=== PATIENT | female | born 1995 | race Caucasian/White ===

== ENCOUNTER 2019-02-22 14:35 | Emergency (ER) | payer OTHER ==
[~2019-02-22] VITALS: Ht 157.5 cm; Wt 72.6 kg
[~2019-02-22 14:35] MED LIST: ZOLOFT50 MG PO
[2019-02-22] MEDS ORDERED: XANAX 0.5 MG0.5 MG PO (14:50)
[2019-02-22 15:38] LABS: ABSOLUTE EOSINOPHILS 0.1 thou/uL (0.0-0.7); ABSOLUTE LYMPHOCYTES 2.7 thou/uL (0.8-5.3); ABSOLUTE MONOCYTES 0.4 thou/uL (0.0-1.2); ABSOLUTE NEUTROPHILS 3.2 thou/uL (1.6-8.1); BASOPHILS 0.5 %; EOSINOPHILS 1.3 %; HEMATOCRIT 36.8 % (37.0-47.0); HEMOGLOBIN 12.7 gm/dL (12.0-15.0); LYMPHOCYTES 41.9 %; MCH 30.6 pg (26.0-34.0); MCHC 34.6 g/dL (28.0-37.0); MCV 88.5 fL (80.0-100.0); MONOCYTES 6.3 %; MPV 7.3 fl. (7.2-11.1); NUCLEATED RBCS 0 /100WBC; PLATELET COUNT* 318 thou/uL (150-400); RBC 4.16 mil/uL (4.20-5.00); RDW-CV 12.7 % (10.5-14.5); WBC 6.4 thou/uL (4.0-11.0)
[2019-02-22 15:47] LABS: CALCIUM 8.8 mg/dL (8.5-10.1); CREATININE 0.8 mg/dL (0.6-1.3); POTASSIUM 3.5 mmol/L (3.5-5.1)
[2019-02-22 15:52] LABS: ALBUMIN 3.6 g/dL (3.4-5.0); TOTAL BILIRUBIN 0.2 mg/dL (<0.1-1.0); TOTAL PROTEIN 6.6 g/dL (6.4-8.2)
[2019-02-22 15:56] LABS: URINE BILIRUBIN NEGATIVE (Negative); URINE BLOOD NEGATIVE (Negative); URINE CLARITY CLEAR; URINE COLOR YELLOW; URINE GLUCOSE-RANDOM NEGATIVE (Negative); URINE KETONES NEGATIVE (Negative); URINE LEUKOCYTES-REFLEX TRACE (Negative); URINE NITRITE-REFLEX NEGATIVE (Negative); URINE PROTEIN NEGATIVE (Negative); URINE SPECIFIC GRAVITY 1.015 (1.005-1.030); URINE UROBILINOGEN 0.2 E.U./dl (0.2-1.0)
[2019-02-22] MEDS ORDERED: DOXYCYCLINE 10100 MG PO (16:02)
[2019-02-22 16:12] LABS: MUCUS 0-3 Light strn/LPF (None Seen); SQUAMOUS >10 Many /LPF (0-3)
[2019-02-22 16:13] LABS: BACTERIA-REFLEX >30 Many /HPF (None Seen); CASTS None Seen /LPF (None Seen); CRYSTALS None Seen /LPF (None Seen); URINE RBC 0-2 Rare /HPF (0-2); URINE WBC-REFLEX 0-5 Rare /HPF (0-5)
[2019-02-22 16:17] VITALS: BP 125/87
== END 2019-02-22 16:19 | disposition home or self-care (01) ==
LOC: M.ERS 14:35
PROVIDERS: Physician Assistant
DX: N39.0 Urinary tract infection, site not specified (principal); N72 Inflammatory disease of cervix uteri

== ENCOUNTER 2019-03-28 09:10 | Emergency (ER) | payer OTHER ==
[~2019-03-28] VITALS: Ht 157.5 cm; Wt 72.6 kg
[~2019-03-28 09:10] MED LIST changes: +DOXYCYCLINE 10100 MG PO; +XANAX 0.5 MG0.5 MG PO
[2019-03-28 09:49] LABS: URINE BILIRUBIN NEGATIVE (Negative); URINE BLOOD NEGATIVE (Negative); URINE CLARITY CLEAR; URINE COLOR YELLOW; URINE GLUCOSE-RANDOM NEGATIVE (Negative); URINE KETONES NEGATIVE (Negative); URINE LEUKOCYTES-REFLEX 1+ (Negative); URINE NITRITE-REFLEX NEGATIVE (Negative); URINE PROTEIN TRACE (Negative); URINE UROBILINOGEN 0.2 E.U./dl (0.2-1.0)
[2019-03-28 10:02] LABS: SQUAMOUS >10 Many /LPF (0-3)
[2019-03-28 10:03] LABS: CASTS None Seen /LPF (None Seen); CRYSTALS None Seen /LPF (None Seen); MUCUS >6 Heavy strn/LPF (None Seen); URINE RBC None Seen /HPF (0-2); URINE WBC-REFLEX 0-5 Rare /HPF (0-5)
[2019-03-28 10:50] LABS: INFLUENZA A ANTIGEN Negative (Negative); INFLUENZA B ANTIGEN Negative (Negative)
[2019-03-28] MEDS ORDERED: TRAMADOL 50 MG50 MG PO (11:23)
[2019-03-28] MEDS ORDERED: BACTRIM DS TAB1 EACH PO (11:23)
[2019-03-28 11:40] VITALS: BP 97/56
== END 2019-03-28 11:41 | disposition home or self-care (01) ==
LOC: M.ERS 09:10
PROVIDERS: Emergency Medicine
DX: N39.0 Urinary tract infection, site not specified (principal); F17.210 Nicotine dependence, cigarettes, uncomplicated

== ENCOUNTER 2019-11-12 21:58 | Emergency (ER) | payer OTHER ==
[~2019-11-12] VITALS: Ht 157.5 cm; Wt 59.0 kg
[~2019-11-12 21:58] MED LIST changes: +BACTRIM DS TAB1 EACH PO; +TRAMADOL 50 MG50 MG PO
[2019-11-12 22:29] LABS: URINE CLARITY CLEAR; URINE COLOR ORANGE
[2019-11-12 22:35] LABS: URINE GLUCOSE-RANDOM ND (Negative); URINE KETONES ND (Negative); URINE PROTEIN ND (Negative); URINE REDUCING SUBSTANCE NEGATIVE (Negative); URINE SPECIFIC GRAVITY 1.015 (1.005-1.030)
[2019-11-12 22:36] LABS: ACETEST (KETONE CONFIRMATORY) Negative (Negative); ICTOTEST (BILI CONFIRMATORY) Negative (Negative); URINE BILIRUBIN ND (Negative); URINE BLOOD ND (Negative); URINE LEUKOCYTES-REFLEX ND (Negative); URINE NITRITE-REFLEX ND (Negative); URINE UROBILINOGEN ND E.U./dl (0.2-1.0)
[2019-11-12 22:50] LABS: AMORPHOUS URATES Many /LPF (None Seen); BACTERIA-REFLEX >30 Many /HPF (None Seen); CASTS None Seen /LPF (None Seen); MUCUS 4-6 Moderate strn/LPF (None Seen); SQUAMOUS 4-10 Moderate /LPF (0-3); URINE RBC 3-10 Few /HPF (0-2); URINE WBC-REFLEX 6-15 Few /HPF (0-5)
[2019-11-12] MEDS ORDERED: BACTRIM DS TAB1 EACH PO (23:11)
[2019-11-12] MEDS ORDERED: ZOFRAN4 MG PO (23:11)
[2019-11-12 23:19] VITALS: BP 118/54
== END 2019-11-12 23:20 | disposition home or self-care (01) ==
LOC: M.ERS 21:58
PROVIDERS: Emergency Medicine
DX: N39.0 Urinary tract infection, site not specified (principal); F17.210 Nicotine dependence, cigarettes, uncomplicated; F32.9 Major depressive disorder, single episode, unspecified; Z79.899 Other long term (current) drug therapy

== ENCOUNTER 2020-04-08 18:13 | Emergency (ER) | payer OTHER ==
[~2020-04-08] VITALS: Ht 157.5 cm; Wt 54.4 kg
[~2020-04-08 18:13] MED LIST changes: +ZOFRAN4 MG PO
[2020-04-08 20:08] LABS: INFLUENZA A ANTIGEN Negative (Negative); INFLUENZA B ANTIGEN Negative (Negative)
[2020-04-08 20:40] LABS: URINE BILIRUBIN NEGATIVE (Negative); URINE BLOOD NEGATIVE (Negative); URINE CLARITY CLEAR; URINE COLOR YELLOW; URINE GLUCOSE-RANDOM NEGATIVE (Negative); URINE KETONES NEGATIVE (Negative); URINE LEUKOCYTES-REFLEX NEGATIVE (Negative); URINE NITRITE-REFLEX NEGATIVE (Negative); URINE PROTEIN NEGATIVE (Negative); URINE SPECIFIC GRAVITY <= 1.005 (1.005-1.030); URINE UROBILINOGEN 0.2 E.U./dl (0.2-1.0)
[2020-04-08 21:01] LABS: ABSOLUTE EOSINOPHILS 0.1 thou/uL (0.0-0.7); ABSOLUTE LYMPHOCYTES 3.3 thou/uL (0.8-5.3); ABSOLUTE MONOCYTES 0.6 thou/uL (0.0-1.2); BASOPHILS 0.5 %; EOSINOPHILS 1.2 %; HEMATOCRIT 43.6 % (37.0-47.0); HEMOGLOBIN 14.7 gm/dL (12.0-15.0); LYMPHOCYTES 36.1 %; MCH 31.1 pg (26.0-34.0); MCHC 33.7 g/dL (28.0-37.0); MCV 92.1 fL (80.0-100.0); MONOCYTES 6.8 %; MPV 7.3 fl. (7.2-11.1); NUCLEATED RBCS 0 /100WBC; PLATELET COUNT* 344 thou/uL (150-400); POLYS 55.4 %; RBC 4.74 mil/uL (4.20-5.00); RDW-CV 12.6 % (10.5-14.5); WBC 9.1 thou/uL (4.0-11.0)
[2020-04-08 21:18] LABS: CALCIUM 9.1 mg/dL (8.5-10.1); CREATININE 0.6 mg/dL (0.6-1.3); POTASSIUM 3.7 mmol/L (3.5-5.1)
[2020-04-08 21:23] LABS: ALBUMIN 4.1 g/dL (3.4-5.0); TOTAL BILIRUBIN 0.5 mg/dL (<0.1-1.0); TOTAL PROTEIN 7.9 g/dL (6.4-8.2)
[2020-04-08] MEDS ORDERED: MECLIZINE HCL25 M1 PO (22:10)
[2020-04-08] MEDS ORDERED: ONDANSETRON HCL4 M2 PO (22:10)
[2020-04-08] MEDS ORDERED: LOMOTIL TABLET1 EACH PO (22:10)
[2020-04-08] MEDS ORDERED: BENTYL 20 MG TA20 M1 PO (22:11)
[2020-04-08 22:29] VITALS: BP 115/70
--- NOTE | 2020-04-09 13:26 | EKG ---
[place] [address] ELECTROCARDIOGRAM REPORT Name: LOBO ZUÑIGA Room: [facility]#: [id number] Admission: 04/08/20 Attend Phys: Discharge: 04/08/20 Date of : [birth year] Date of Service: 04/08/20 [facility] Report #: [id number] THIS REPORT FOR: //name// [facility] ED Test Date: 2020-04-08 Test Time: 19:50:42 Pat Name: LOBO ZUÑIGA Department: Room: Gender: F Adventure Guide: : 1995 Requested By: Beatrice Barger Order Number: [id number] MD: Harvey Acuna Measurements Intervals [place] Rate: 60 P: 77 MD: 135 QRS: 60 QRSD: 97 T: 35 QT: 409 QTc: 409 Interpretive Statements Sinus rhythm RSR' in V1 or V2, right VCD or RVH No previous ECG available for comparison Electronically Signed On 04-09-2020 13:26:27 [employer]OTTOM [employer] ATT[employer]ER by Harvey Acuna [email or web address] <ELECTRONICALLY SIGNED> By: Harvey Acuna MD, [facility] 04/09/20 1326 1950 49 Harvey Acuna MD, FAC /EPI
== END 2020-04-08 22:30 | disposition home or self-care (01) ==
LOC: M.ERS 18:13
PROVIDERS: Nurse Practitioner Family
DX: B34.9 Viral infection, unspecified (principal); Z20.828 Contact with and (suspected) exposure to other viral communicable diseases; K58.9 Irritable bowel syndrome, unspecified; F17.210 Nicotine dependence, cigarettes, uncomplicated